=== PATIENT | male | born 1945 | race African-American/Black ===

== ENCOUNTER 2016-10-15 05:45 | Inpatient (IN) ==
[2016-10-02 10:43] LABS: HEMATOCRIT 37.6 % (42.0-52.0); HEMOGLOBIN 11.8 g/dL (14.0-18.0); MCH 31.9 PG (27-31); MCHC 31.4 g/dL (33-37); MCV 101.6 FL (81-99); MPV 11.8 FL (7.4-10.4); RBC 3.7 XMIL (4.7-6.1)
[2016-10-02 10:50] LABS: AGAP 7; BUN 13 mg/dL (8-22); CALCIUM 10.1 mg/dL (8.8-10.2); CHLORIDE 101 mmol/L (98-107); COSMO 281; POTASSIUM 5.3 mmol/L (3.5-5.1); SODIUM 140 mmol/L (136-145); TCO2 32 mmol/L (25-35)
[2016-10-02 10:57] LABS: INR 1.02; PROTIME 10.7 Seconds (9.2-11.7); PTT 25.7 Seconds (22.0-36.0)
[~2016-10-15 05:45] MED LIST: KEFZOL 2 GM/D5W 2 GM/50 ML IVPB ONE; LR 1,000 ML ONE
[2016-10-15] MEDS ORDERED: DIPRIVAN 1% ONE (06:31)
[2016-10-15] MEDS ORDERED: QUELICIN (DOSE) ONE (06:32)
[2016-10-15] MEDS ORDERED: XYLOCAINE-MPF 2% ONE (06:32)
[2016-10-15] MEDS ORDERED: FENTANYL ONE (07:14)
[2016-10-15] MEDS ORDERED: OFIRMEV 1000 MG/ISOTONIC SOLN 1,000 MG/100 ML BOTTLE ONE (07:22)
[2016-10-15] MEDS ORDERED: ATROPINE ONE (07:27)
[2016-10-15] MEDS ORDERED: ROBINUL ONE ×2 (07:27→09:06)
[2016-10-15] MEDS ORDERED: VENTOLIN HFA ONE (07:27)
[2016-10-15] MEDS ORDERED: ZOFRAN ONE (07:27)
[2016-10-15 07:56] LABS: URINE MICRO REVIEW NEEDED? NO; URINE SOURCE CATH
[2016-10-15 08:02] LABS: BILIRUBIN URINE NEGATIVE (NEGATIVE); BLOOD URINE NEGATIVE (NEGATIVE); COLOR YELLOW; GLUCOSE URINE NEGATIVE (NEGATIVE); LEUKOCYTES URINE NEGATIVE (NEGATIVE); NITRITE URINE NEGATIVE (NEGATIVE); PH URINE 5.5; PROTEIN URINE NEGATIVE (NEGATIVE); SP GRAVITY URINE 1.017; TURBIDITY URINE CLEAR (CLEAR); UROBILINOGEN URINE NORMAL (NORMAL)
[2016-10-15 08:04] LABS: UR EPITHELIAL CELLS <10 /HPF (<10); URINE BACTERIA NEGATIVE /HPF; URINE RBC <10 /HPF (<10); URINE WBC <10 /HPF (<10)
[2016-10-15] MEDS ORDERED: NEOSTIGMINE ONE (09:06)
[2016-10-15] MEDS ORDERED: NS 1,000 ML ONE (09:47)
[2016-10-15] MEDS: MORPHINE ONE ×3 (09:58→10:06)
[2016-10-15] MEDS ORDERED: MORPHINE ONE (10:07)
[2016-10-15] MEDS ORDERED: PHENERGAN PO PRN (10:52)
[2016-10-15] MEDS ORDERED: BENADRYL IV PRN (10:52)
[2016-10-15] MEDS ORDERED: PHENERGAN PR PRN (10:52)
[2016-10-15] MEDS ORDERED: LABETALOL IV PRN (10:52)
[2016-10-15] MEDS ORDERED: ZOFRAN IV PRN (10:52)
[2016-10-15] MEDS ORDERED: PHENERGAN IV PRN (10:52)
[2016-10-15] MEDS ORDERED: DITROPAN PO PRN (10:52)
[2016-10-15] MEDS ORDERED: SODIUM CHLORIDE 0.9% INJ PRN (10:52)
[2016-10-15] MEDS ORDERED: BENADRYL LIQUID PO PRN (10:52)
[2016-10-15] MEDS ORDERED: B & O 15A SUPP PR PRN (10:52)
[2016-10-15] MEDS ORDERED: TYLENOL PO PRN (10:52)
[2016-10-15] MEDS: HUMULIN R SUBQ SCH ×2 (11:30→17:05)
[2016-10-15] MEDS: KEFZOL 1 GM/D5W 1 GM/50 ML IVPB IV SCH (15:45)
[2016-10-15] MEDS: NS 1,000 ML IV SCH ×2 (16:43→21:26)
[2016-10-15] MEDS: MORPHINE IV PRN ×2 (17:03→21:25)
[2016-10-15] MEDS: PERIDEX MT SCH (21:26)
[2016-10-15] MEDS: COLACE PO SCH (21:26)
[2016-10-16] MEDS: KEFZOL 1 GM/D5W 1 GM/50 ML IVPB IV SCH ×2 (00:19→06:41)
[2016-10-16] MEDS: NORCO-7.5 PO PRN ×3 (00:24→10:36)
[2016-10-16] MEDS: HUMULIN R SUBQ SCH ×2 (00:29→07:59)
[2016-10-16 05:49] LABS: HEMATOCRIT 34.5 % (42.0-52.0); MCH 31.5 PG (27-31); MCHC 31.9 g/dL (33-37); MCV 98.9 FL (81-99); MPV 11.6 FL (7.4-10.4); RBC 3.49 XMIL (4.7-6.1)
[2016-10-16 06:03] LABS: CREATININE BODY FLUID 0.7 mg/dL
[2016-10-16 06:06] LABS: AGAP 12; BUN 10 mg/dL (8-22); CALCIUM 8.7 mg/dL (8.8-10.2); CHLORIDE 100 mmol/L (98-107); COSMO 280; POTASSIUM 4.2 mmol/L (3.5-5.1); SODIUM 140 mmol/L (136-145); TCO2 28 mmol/L (25-35)
[2016-10-16] MEDS ORDERED: PRILOSEC PO SCH (07:00)
[2016-10-16] MEDS ORDERED: VITAMIN B-12 PO SCH (09:00)
[2016-10-16] MEDS ORDERED: THERA M PLUS PO SCH (09:00)
[2016-10-16] MEDS ORDERED: ALTACE PO SCH (09:00)
[2016-10-16] MEDS ORDERED: GLUCOPHAGE XR PO SCH (09:00)
[2016-10-16] MEDS ORDERED: COREG PO SCH (09:00)
[2016-10-16] MEDS ORDERED: NORVASC PO SCH (09:00)
[2016-10-16] MEDS: COLACE PO SCH (10:35)
[2016-10-16] MEDS: PERIDEX MT SCH (10:39)
[2016-10-16 11:09] VITALS: BP 116/62
[2016-10-16] MEDS ORDERED: ZOCOR PO SCH (21:00)
--- NOTE | 2016-11-03 03:47 | OPERATIVE NOTE ---
PROCEDURE DATE: 10/15/2016 SURGEON: Dr. Jin Culp PREOPERATIVE DIAGNOSES: 1. Elevated PSA. 2. Prostate cancer. PRIMARY PROCEDURES: Robotic-assisted laparoscopic prostatectomy with nerve sparing, bilateral pelvic lymph node dissection, laparoscopic urethral suspension. INDICATION: A 70-year-old male, with elevated PSA and prostate cancer, diagnosed by prostate biopsy, who presented with desire to have a robotic prostatectomy with pelvic lymph node dissection. His PSA was 4.73 at presentation. He had [place] 7 prostate adenocarcinoma, his most aggressive cancer. He was counseled on the risks of the procedure including, specifically, the risk of long-term urinary incontinence, as well as erectile dysfunction. FINDINGS: Adequate hemostasis at conclusion case, watertight vesicourethral anastomosis. DESCRIPTION OF PROCEDURE: After obtaining informed consent, the patient was brought to the operating room. Perioperative antibiotics and general endotracheal anesthesia was administered. He was placed in lithotomy position, prepped and draped in sterile fashion. An 18-Bel[place] Phillips catheter was introduced, with return of clear urine. A small stab incision was made in the umbilicus with a 15-blade, followed by introduction of the Veress needle connected to saline- filled syringe. We confirmed positive drop test, followed by aspiration of fluid from syringe without evidence of GI contents or blood. We then increased pneumoperitoneal pressure to 15 mmHg. We then marked the trocars sites in a standard prostatectomy fashion. Bovie electrocautery was used to make an incision. The robotic camera was introduced through 12 mm trocar. With robotic camera introduction, examined the peritoneal cavity without evidence of adhesions or other abdominal pathology. We introduced the rest of the trocars under direct vision. We then placed him in steep Trendelenburg position and docked the robot. We began by incising the peritoneum approximately 3 cm above the rectum. The right vas deferens was isolated, dissected and transected, followed by identification and isolation of the right seminal vesicle, making sure to avoid the use of electrocautery laterally. We then performed the same thing on the left side. I then dissected anterior to the vas deferens, to the level of prostate and posterior to the seminal vesicles, through Denonvillier's fascia to perirectal plane. Following that, we incised lateral to each medial umbilical ligament, allowing us to drop the bladder. Endopelvic fascia was cleaned off and incised along the contour of the prostate, in the process dissecting toward the apex, including sharp transection of puboprostatic ligament and bipolar cautery of superficial dorsal venous complex. A 0 V lock suture was used for deep dorsal venous complex control, in a figure-of- eight fashion, with anterior periosteal attachment. Once that was done, the bladder neck was identified by gentle tugging of the Phillips, and incised with monopolar electrocautery. It was transected circumferentially with Phillips catheter, brought out and placed in anterior traction. We then developed a plane between the bladder and the prostate posteriorly, allowing us to eventually see the vans deferens and seminal vesicles. Once those were up in the air, and placed on traction, the pedicles came into the view. Hem-o-belkys clips were used to reflect the pedicles off prostatic edge without use of electrocautery. Once the pedicles were free, we cleaned off the prostate posteriorly. Deep dorsal venous complex was transected sharply. We used partial urethral length preservation technique, given his extent of disease. We then was transected the urethra and prostate was delivered to the field and placed into EndoCatch bag. We then turned attention to the surgical field examination and decreased pneumoperitoneum pressure, with no evidence of active bleeding. We then looked at pelvic lymph node dissection. On the right side, I was able to isolate and identify the right external iliac vein. The lymphatic packet was grasped and dissection performed with the following landmarks: Pelvic sidewalls laterally, external iliac vein up to its confluence with the common iliac vein superiorly, perivesical fat medially, obturator vessels and nerve posteriorly. I made sure I could see and preserve the obturator nerve, as well as the vessels. We then performed the same thing on the left side. After lymphadenectomy, Surgicel hemostatic agent was used to place into the lymphadenectomy bed. We then decreased the pneumoperitoneal pressure again and there was no evidence of active bleeding with the lymphadenectomy bed on either side. Following that, we turned attention to the Inderjit stitch. A 3-0 V-Loc suture was used to reapproximate the perivesical and periurethral fascia in a running fashion, securing the sutures and leaving them in place. We then performed formal vesicourethral anastomosis with 3-0 V-Loc sutures by reapproximating urethra and the bladder in a clockwise and counterclockwise fashion, and subsequently cross-tying the sutures. Once that was done, fresh 18-Bel[place] Phillips catheter was introduced, with return of clear urine. Previously placed Inderjit stitches were then used to suspend the urethra by threading the suture through the periosteum of his bony pelvis. Pneumoperitoneal pressure was decreased again after the sutures were placed in tension, thereby elevating the urethra. There was no evidence of active bleeding. The trocars were removed. The wounds were copiously irrigated. A 0 Vicryl suture was used to close the supraumbilical wound, as well as the 12 mm trocar, in a [id number] fashion with interrupted 0 Vicryl stitches. Wounds were irrigated again. A 4-0 Monocryl suture was then used to provide subcuticular closure, followed by placement of Dermabond skin adhesive. For the last time, pneumoperitoneal pressure was decreased, and there was no evidence of bleeding at 3 mmHg. We then undocked the robot, removed the trocars and copiously irrigated the wound. Again, after the fascia and skin were closed, he was extubated and taken to PACU for further recovery. ESTIMATED BLOOD LOSS: 50 mL. COMPLICATIONS: None. DISPOSITION: To PACU, subsequently floor, with Phillips catheter to gravity drainage. cc: Jin Culp MD MTDErlinda
== END 2016-10-16 11:59 | disposition home or self-care (01) ==
LOC: SURHOLD 05:46 → 4N 10:38 → OPS 10:39 → 4N 17:57 → DIRADM 17:58 → UNDODISIN 10-16 11:59 → OPS 10-16 11:59 → EDSTATUS 10-16 14:55 → OPS 11-13 14:47
PROVIDERS: ADMIT Urology; ATTEND Urology